=== PATIENT | female | born 1950 | race Caucasian/White ===

== ENCOUNTER 2018-12-07 13:11 | Outpatient (CLI) | payer MEDICARE, OTHER ==
--- NOTE | 2018-12-08 16:03 | XRAY Report ---
Reason: COUGH Procedure Date: 12/07/2018 Accession Number: [id number] / [id number] Procedure: XRS - Chest 2 View X-Ray CPT Code: 93036 FULL RESULT: EXAM: CHEST RADIOGRAPHY EXAM DATE: 12/07/2018 01:24 PM. CLINICAL HISTORY: Cough for three months. COMPARISON: None. TECHNIQUE: 2 views. FINDINGS: Lungs/Pleura: No focal opacities evident. No pleural effusion. No pneumothorax. Normal volumes. Mediastinum: Heart and mediastinal contours are unremarkable. Other: No bony abnormality identified. IMPRESSION: Normal 2-view chest radiography. [facility]
== END 2018-12-07 13:12 | disposition home or self-care (01) ==
LOC: DI.S 13:11
PROVIDERS: ATTEND Physician Assistant
DX: R05 Cough (principal)
CPT/HCPCS: 71046

== ENCOUNTER 2020-10-24 08:00 | Outpatient (CLI) | payer MEDICARE, OTHER | END 2020-10-24 23:59 | disposition home or self-care (01) | LOC: LAB.F 08:00 | PROVIDERS: ATTEND Internal Medicine | DX: Z20.822 Contact with and (suspected) exposure to COVID-19 (principal) | CPT/HCPCS: 87635 ==

== ENCOUNTER 2020-11-15 13:48 | Outpatient (CLI) | payer MEDICARE, OTHER ==
[2020-11-15 20:57] LABS: B. PARAPERTUSSIS- RESP PCR PAN NOT DETECTED; B. PERTUSSIS- RESP PCR PANEL NOT DETECTED; C. PNEUMONIAE- RESP PCR PANEL NOT DETECTED; CORONAVIRUS 229E-RESP PCR NOT DETECTED; CORONAVIRUS HKU1-RESP PCR NOT DETECTED; CORONAVIRUS NL63-RESP PCR NOT DETECTED; CORONAVIRUS OC43-RESP PCR NOT DETECTED; HUMAN METAPNEUMOVIRUS NOT DETECTED; INFLUENZA A- RESP PCR PANEL NOT DETECTED; INFLUENZA B - RESP PCR PANEL NOT DETECTED; M. PNEUMONIAE- RESP PCR PANEL NOT DETECTED; PARAINFLUENZA VIRUS 1 NOT DETECTED; PARAINFLUENZA VIRUS 2 NOT DETECTED; PARAINFLUENZA VIRUS 3 NOT DETECTED; PARAINFLUENZA VIRUS 4 NOT DETECTED; RHINOVIRUS/ENTEROVIRUS NOT DETECTED; RSV- RESP PCR PANEL NOT DETECTED; SARS-CoV-2 -RESP PCR PANEL NOT DETECTED
== END 2020-11-15 13:49 | disposition home or self-care (01) ==
LOC: LAB.S 13:48
PROVIDERS: ATTEND Internal Medicine
DX: R05 Cough (principal); Z20.822 Contact with and (suspected) exposure to COVID-19
CPT/HCPCS: 0202U; 87798

== ENCOUNTER 2020-11-26 10:35 | Outpatient (CLI) | payer MEDICARE, OTHER ==
--- NOTE | 2020-11-26 11:57 | XRAY Report ---
PROCEDURE: Chest 2 View X-Ray INDICATIONS: COUGH TECHNIQUE: 2 view(s) of the chest. COMPARISON: 12/07/2018 FINDINGS: Surgical changes and devices: None. Lungs and pleura: No pleural effusions or pneumothorax. Lungs are clear. Mediastinum: The aorta is prominent and tortuous. The cardiac contours are within normal limits. Bones and chest wall: No suspicious bony abnormalities. Age-appropriate degenerative changes are see n. Soft tissues appear unremarkable. IMPRESSION: Normal chest series for age, without infiltrates. Reviewed by: Red Lopez MD on 11/26/2020 10:55 AM ALEKSANDR Approved by: Red Lopez MD on 11/26/2020 10:55 AM ALEKSANDR Station ID: [id number]
== END 2020-11-26 10:36 | disposition home or self-care (01) ==
LOC: DI.S 10:35
PROVIDERS: ATTEND Internal Medicine
DX: R05 Cough (principal)

== ENCOUNTER 2021-10-14 07:20 | Outpatient (CLI) | payer MEDICARE, OTHER ==
[2021-10-14 15:34] LABS: THYROID STIMULATING HORMONE 0.64 uIU/mL (0.34-5.60)
[2021-10-14 15:36] LABS: FREE T4 (FREE THYROXINE) 1.07 ng/dL (0.58-1.64)
== END 2021-10-14 07:21 | disposition home or self-care (01) ==
LOC: LAB.S 07:20
PROVIDERS: ATTEND Nurse Practitioner Family
DX: E03.9 Hypothyroidism, unspecified (principal)
CPT/HCPCS: 36415; 84439; 84443